=== PATIENT | male | born 1940 | race Caucasian/White ===

== ENCOUNTER 2021-09-20 09:08 | Outpatient (CLI) | payer MEDICARE, BC ==
[2021-09-20 10:06] LABS: ALBUMIN 3.8 G/DL (3.4-5.0); ANION GAP 10 (8-16); BLOOD UREA NITROGEN 54 MG/DL (7-18); CALCIUM 8.7 MG/DL (8.5-10.1); CHLORIDE 103 MMOL/L (99-107); SODIUM 138 MMOL/L (135-145); TOTAL CARBON DIOXIDE 25.1 MMOL/L (24-32); eGFR 37 ML/MIN
[2021-09-20 10:08] LABS: GLUCOSE 205 MG/DL (70-104); POTASSIUM 4.6 MMOL/L (3.5-5.1)
== END 2021-09-20 23:59 | disposition home or self-care (01) ==
LOC: RAD 09:08
PROVIDERS: ATTEND Internal Medicine Interventional Cardiology
DX: I10 Essential (primary) hypertension (principal); I48.91 Unspecified atrial fibrillation
CPT/HCPCS: 36415; 80048

== ENCOUNTER 2021-09-21 09:36 | Day surgery (SDC) | payer MEDICARE, BC ==
[~2021-09-21] VITALS: Ht 162.6 cm; Wt 72.5 kg
[2021-09-21 10:00] VITALS: BP 116/52
[2021-09-21] MEDS ORDERED: sodium bicarbonate (8.4%) inj. 150 MEQ in dextrose 5%-water 1,000 ML IV SCH (10:10)
[2021-09-21] MEDS ORDERED: iohexol 350 MG/ML 50ML vial IV ONE (12:07)
--- NOTE | 2021-09-21 15:09 | NUR ---
Patient in room . I have received report from Danyelle SHRESTHA and had the opportunity to ask questions and assume patient care.
[2021-09-21 15:13] VITALS: BP 101/58
--- NOTE | 2021-09-21 15:14 | NUR ---
Pt resting in bed, at bedside. Denies pain. VS stable as charted. Will continue to monitor.
== END 2021-09-21 16:14 | disposition home or self-care (01) ==
LOC: SSTAY O 09:36 → EDSTATUS 11:00 → SSTAY O 16:14
PROVIDERS: ATTEND Internal Medicine Interventional Cardiology
DX: I65.23 Occlusion and stenosis of bilateral carotid arteries (principal); Z79.899 Other long term (current) drug therapy
CPT/HCPCS: 70498; 82948; J3490; J7070; Q9967

== ENCOUNTER 2021-10-18 09:27 | Inpatient (IN) | payer MEDICARE, BC ==
[2021-10-18] VITALS (12 sets, daily range): BP systolic 94–168; BP diastolic 43–87
[~2021-10-18] VITALS: Ht 162.6 cm; Wt 72.4 kg
[2021-10-18] MEDS ORDERED: diphenhydrAMINE 25mg capsule PO ONE (10:00)
[2021-10-18] MEDS ORDERED: LORazepam 1 MG tablet PO ONE (10:00)
[2021-10-18] MEDS ORDERED: ALLO300T8 PO (10:38)
[2021-10-18] MEDS ORDERED: FENO160T8 PO (10:38)
[2021-10-18] MEDS ORDERED: BEMP180T (10:38)
[2021-10-18] MEDS ORDERED: HYDR12.55 PO (10:38)
[2021-10-18] MEDS ORDERED: FLO0.4C PO (10:38)
[2021-10-18] MEDS ORDERED: CLOP75TA34 (10:46)
[2021-10-18] MEDS ORDERED: EMPA10TA (10:46)
[2021-10-18] MEDS ORDERED: LANTUS SQ (10:46)
[2021-10-18] MEDS ORDERED: LISI20TA28 (10:46)
[2021-10-18] MEDS ORDERED: PRED20TA (10:46)
[2021-10-18] MEDS ORDERED: ASPI-1071 PO (10:46)
[2021-10-18] MEDS ORDERED: GLIP10TA21 PO (10:46)
[2021-10-18] MEDS ORDERED: CILO50TA2 PO (10:46)
[2021-10-18] MEDS ORDERED: DIPH25TA62 PO (10:47)
[2021-10-18] MEDS ORDERED: LORazepam 0.5 MG tablet PO ONE (12:15)
[2021-10-18] MEDS ORDERED: heparin 1,000unit/ml 10ml vial 10 ML ONE (14:29)
[2021-10-18] MEDS ORDERED: DOPamine 400mg/D5W 250ml 0 ML IV ONE (14:29)
[2021-10-18] MEDS ORDERED: phenylephrine 10mg/ml inj. ONE (14:29)
[2021-10-18] MEDS ORDERED: atropine 0.1mg/ml 10ml syringe ONE ×2 (14:29→15:20)
[2021-10-18] MEDS ORDERED: iohexol 350MG/ML 100ml bottle IV ONE (14:30)
[2021-10-18] MEDS ORDERED: LIDOcaine 1% 30ml preserv. free vial ONE (14:49)
[2021-10-18] MEDS ORDERED: hydrocortisone sod succ/PF 100mg/2ml inj. ONE (15:00)
[2021-10-18] MEDS ORDERED: clopidogrel 300mg tablet ONE (15:29)
--- NOTE | 2021-10-18 16:15 | NUR ---
Accompanied patient's to U 3023B with all of patient's belongings. Bedside report given to receiving HENRIETTA Cuellar. Patient stable at transfer from [employer] business representative.
--- NOTE | 2021-10-18 16:21 | NUR ---
patient arrived on floor at 1605. Groin cath site CDI no hematoma, no bruising. distal pulse and sensation intact. Neuro check grossly normal. All extremities warm with good pulses and sensation intact. PT and educated about need to stay flat until 8 pm both verbalized understanding
--- NOTE | 2021-10-18 16:42 | NUR ---
neuro intact - grossly normal , vitals stable , cath site no issues, pulses in all 4 extremities normal cap refill brisk
[2021-10-18] MEDS ORDERED: HYDROcodone/acetaminophen 10/325mg tab PO PRN (17:05)
[2021-10-18] MEDS ORDERED: hydrALAZINE 20mg/ml inj. IV PRN (17:05)
[2021-10-18] MEDS ORDERED: insulin Lispro (HumaLOG) vial - multi-dose SQ SCH (17:05)
[2021-10-18] MEDS ORDERED: glucagon, human recombinant 1mg kit SUBCUT PRN (17:05)
[2021-10-18] MEDS ORDERED: DOPamine 400mg/D5W 250ml 250 ML IV SCH (17:05)
[2021-10-18] MEDS ORDERED: dextrose 50%-water 50ml dispensing syringe IV PRN ×2 (17:05)
[2021-10-18] MEDS ORDERED: MESSAGE TO PHARMACY PO ONE (17:05)
[2021-10-18] MEDS ORDERED: DEXTROSE 15 GM of carb/4 tabs (each vial/BOTTLE has 4 tablets) PO PRN ×2 (17:05)
[2021-10-18] MEDS ORDERED: acetaminophen 325mg tablet PO PRN (17:05)
[2021-10-18] MEDS ORDERED: pseudoephedrine 30mg tablet PO PRN (17:05)
[2021-10-18] MEDS ORDERED: HYDROcodone/acetaminophen 5mg/325mg tablet PO PRN (17:05)
--- NOTE | 2021-10-18 17:46 | NUR ---
neuro check x2 grossly intact - no changes , cath site no changes
--- NOTE | 2021-10-18 18:32 | NUR ---
neuro check normal no changes no complications at cath site
--- NOTE | 2021-10-18 18:33 | NUR ---
Problems reprioritized. Patient report given, questions answered & plan of care reviewed with Thalia SHRESTHA. Patient resting in bed in no acute distress.
[2021-10-18] MEDS: cilostazol 50mg tablet PO SCH (19:51)
[2021-10-18] MEDS ORDERED: insulin glargine (Lantus) pen - multi-dose SQ SCH (21:00)
[2021-10-19 02:00] VITALS: BP 104/56
[2021-10-19 06:00] VITALS: BP 128/82
--- NOTE | 2021-10-19 06:35 | NUR ---
Patient in room PCU 3023. I have received report from HENRIETTA MENDEZ, and had the opportunity to ask questions and assume patient care.
[2021-10-19] MEDS: cilostazol 50mg tablet PO SCH (07:10)
[2021-10-19] MEDS ORDERED: aspirin 81mg, enteric-coated 1 TAB TABLET.DR PO SCH (08:00)
[2021-10-19] MEDS ORDERED: fenofibrate 145mg tablet PO SCH (08:00)
[2021-10-19] MEDS ORDERED: allopurinol 300 MG tablet PO SCH (08:00)
[2021-10-19] MEDS ORDERED: BEMPEDOIC ACID 180 MG PO SCH (08:00)
[2021-10-19] MEDS ORDERED: GLIPIZIDE PO SCH (08:00)
[2021-10-19] MEDS ORDERED: tamsulosin 0.4mg capsule PO SCH (08:00)
[2021-10-19] MEDS ORDERED: HYDROchlorothiazide 12.5mg capsule PO SCH (08:00)
[2021-10-19] MEDS ORDERED: EMPAGLIFLOZIN 10 MG TABLET PO SCH (08:00)
[2021-10-19] MEDS ORDERED: lisinopril 20mg tablet PO SCH (08:00)
[2021-10-19] MEDS ORDERED: clopidogrel 75mg tablet PO SCH (08:00)
--- NOTE | 2021-10-19 09:40 | NUR ---
Noted pt with T2DM, well controlled with A1c 7.5%. Written DM education with RD contact information placed in patient's chart. Will remain available. Addendum: 10/19/21 at [address] Amended: Links added.
[2021-10-19 11:00] VITALS: BP 92/45
[2021-10-19 11:07] VITALS: BP 94/41
--- NOTE | 2021-10-19 12:36 | NUR ---
PT STABLE FOR DISCHARGE PER MD. DISCHARGE AND FOLLOW UP INSTRUCTIONS REVIEWED WITH PT AND HIS . FOLLOW UP APPOINTMENT WITH DR. ALEXANDER WAS EMPHASIZED. BELONGINGS RETURNED TO PT. TELE BOX REMOVED. PIV REMOVED WITH TIP INTACT. PT DISCHARGED TO HOME. PT LEFT IN PRIVATE VEHICLE.
== END 2021-10-19 12:25 | disposition home or self-care (01) | DRG 36 ==
LOC: SSTAY O 09:27 → OBSVTOIN 15:30 → SSTAY O 15:30 → PCU 3S 15:30 → UNDOADMOB 16:50 → PCU 3S 16:50
PROVIDERS: ADMIT Student in an Organized Health Care Education/Training Program; ATTEND Internal Medicine Interventional Cardiology
PROC: B3141ZZ Fluoroscopy of Left Common Carotid Artery using Low Osmolar Contrast (ICD-10-PCS; principal; 2021-10-18)
PROC: 037L3DZ Dilation of Left Internal Carotid Artery with Intraluminal Device, Percutaneous Approach (ICD-10-PCS; 2021-10-18)
PROC: B3171ZZ Fluoroscopy of Left Internal Carotid Artery using Low Osmolar Contrast (ICD-10-PCS; 2021-10-18)
PROC: B31B1ZZ Fluoroscopy of Left External Carotid Artery using Low Osmolar Contrast (ICD-10-PCS; 2021-10-18)
PROC: B41F1ZZ Fluoroscopy of Right Lower Extremity Arteries using Low Osmolar Contrast (ICD-10-PCS; 2021-10-18)
PROC: B3101ZZ Fluoroscopy of Thoracic Aorta using Low Osmolar Contrast (ICD-10-PCS; 2021-10-18)
DX: I65.23 Occlusion and stenosis of bilateral carotid arteries (principal); I10 Essential (primary) hypertension; I25.10 Atherosclerotic heart disease of native coronary artery without angina pectoris; I48.91 Unspecified atrial fibrillation; I35.0 Nonrheumatic aortic (valve) stenosis; R00.1 Bradycardia, unspecified; E11.51 Type 2 diabetes mellitus with diabetic peripheral angiopathy without gangrene; E78.5 Hyperlipidemia, unspecified; Z79.84 Long term (current) use of oral hypoglycemic drugs; Z79.899 Other long term (current) drug therapy
CPT/HCPCS: 36223; 36415; 37215; 82948; 83036; 87081; 93005; A4620; A6258; C1725; C1760; C1769; C1876; C1884; C1887; C1894; G0378; J0461; J1265; J1644; J1720; J1815; J2370; J3490; J7030; Q0163; Q9967

== ENCOUNTER 2022-03-02 01:22 | Inpatient (IN) | payer MEDICARE, BC ==
[~2022-03-02] VITALS: Ht 162.6 cm; Wt 70.5 kg
[~2022-03-02 01:22] MED LIST: ALLO300T8 PO; ASPI-1071 PO; BEMP180T; CILO50TA2 PO; CLOP75TA34; DIPH25TA62 PO; EMPA10TA; FENO160T8 PO; FLO0.4C PO; GLIP10TA21 PO; HYDR12.55 PO; LANTUS SQ; LISI20TA28; PRED20TA
[2022-03-02 02:28] LABS: BASOPHILS # (AUTO) 0.1 X10'3 (0-0.2); BASOPHILS % (AUTO) 0.8 % (0-1); EOSINOPHILS # (AUTO) 0.4 X10'3 (0-0.9); EOSINOPHILS % (AUTO) 2.9 % (0-6); HEMATOCRIT 35.7 % (42.0-52.0); HEMOGLOBIN 12.2 g/dl (14.0-17.9); LYMPHOCYTES # (AUTO) 1.4 X10'3 (1.1-4.8); LYMPHOCYTES % (AUTO) 11.3 % (21-51); MEAN CORPUSCULAR HEMOGLOBIN 30.9 PG (27.0-31.0); MEAN CORPUSCULAR HGB CONC 34.1 g/dL (33.0-36.5); MEAN CORPUSCULAR VOLUME 90.6 FL (78-98); MEAN PLATELET VOLUME 8.3 FL (7.4-10.4); MONOCYTES % (AUTO) 8.3 % (2-12); NEUTROPHILS # (AUTO) 9.3 X10'3 (1.8-7.7); NEUTROPHILS % (AUTO) 76.7 % (42-75); PLATELET COUNT 269 X10'3 (140-440); RED BLOOD COUNT 3.94 X10'6 (4.70-6.10); RED CELL DISTRIBUTION WIDTH 14.6 % (11.5-14.5); WHITE BLOOD COUNT 12.1 X10'3 (4.5-11.0)
[2022-03-02 02:43] LABS: ALANINE AMINOTRANSFERASE 31 U/L (12-78); ALBUMIN 3.4 G/DL (3.4-5.0); ALKALINE PHOSPHATASE 78 IU/L (46-116); ANION GAP 9 (8-16); ASPARTATE AMINO TRANSFERASE 32 U/L (10-37); BILIRUBIN,TOTAL 0.5 MG/DL (0.1-1.0); BLOOD UREA NITROGEN 23 MG/DL (7-18); BUN/CREATININE RATIO 20.5 (5.4-32.0); CALCIUM 9.1 MG/DL (8.5-10.1); CHLORIDE 104 MMOL/L (99-107); CREATININE 1.12 MG/DL (0.60-1.10); GLUCOSE 198 MG/DL (70-104); MAGNESIUM 1.7 MG/DL (1.5-2.4); POTASSIUM 4.2 MMOL/L (3.5-5.1); SODIUM 137 MMOL/L (135-145); TOTAL CARBON DIOXIDE 23.9 MMOL/L (24-32); TOTAL PROTEIN 6.9 G/DL (6.4-8.2); eGFR 63 ML/MIN
[2022-03-02] MEDS ORDERED: furosemide 10 MG/1 ML 10ml inj IV ONE (02:50)
[2022-03-02] MEDS ORDERED: potassium CL 10mEq/100ml bag 100 ML IV PRN (04:40)
[2022-03-02] MEDS ORDERED: acetaminophen 325mg tablet PO PRN ×2 (04:40)
[2022-03-02] MEDS ORDERED: ondansetron/PF 4mg/2ml inj IV PRN (04:40)
[2022-03-02] MEDS ORDERED: magnesium Cl slow-release 64mg tablet PO PRN (04:40)
[2022-03-02] MEDS ORDERED: magnesium 4gm in 100ml NS 100 ML IV PRN (04:40)
[2022-03-02] MEDS ORDERED: POTASSIUM BICARB 20meq eff tab 20 MEQ TABLET.EFF PO PRN ×2 (04:40)
[2022-03-02] MEDS ORDERED: morphine 2 MG/ML inj. syringe IV PRN (04:40)
[2022-03-02] MEDS ORDERED: enoxaparin 100mg/ml syringe SUBCUT ONE (04:45)
[2022-03-02] MEDS ORDERED: insulin Lispro (HumaLOG) vial - multi-dose SQ SCH (04:50)
[2022-03-02] MEDS ORDERED: dextrose 50%-water 50ml dispensing syringe IV PRN ×2 (04:50)
[2022-03-02] MEDS ORDERED: MESSAGE TO PHARMACY PO ONE (04:50)
[2022-03-02] MEDS ORDERED: DEXTROSE 15 GM of carb/4 tabs (each vial/BOTTLE has 4 tablets) PO PRN ×2 (04:50)
[2022-03-02] MEDS ORDERED: glucagon, human recombinant 1mg kit SUBCUT PRN (04:50)
[2022-03-02 05:09] LABS: D-DIMER 0.86 MG/L FEU (0-0.50)
--- NOTE | 2022-03-02 07:04 | NUR ---
Pt moved to ER bed 14. Assumed care of patient.
[2022-03-02] MEDS: K and/or MAG REPLACEMENT MC SCH ×2 (07:20→20:00)
[2022-03-02] MEDS: tamsulosin 0.4mg capsule PO SCH (07:34)
[2022-03-02] MEDS: clopidogrel 75mg tablet PO SCH (07:34)
[2022-03-02] MEDS: aspirin 81mg, enteric-coated 1 TAB TABLET.DR PO SCH (07:34)
[2022-03-02] MEDS: furosemide 20 MG/2 ML vial IV SCH ×2 (07:34→20:00)
[2022-03-02] MEDS: CefTRIAXone 2gm/D5W 50ml BAG 50 ML IV SCH (07:34)
[2022-03-02] MEDS: carVEDilol 3.125mg tablet PO SCH ×2 (07:34→20:00)
[2022-03-02] MEDS: lisinopril 20mg tablet PO SCH (07:35)
[2022-03-02] MEDS: enoxaparin 30mg/0.3ml syringe SQ SCH ×2 (07:35→20:00)
[2022-03-02] MEDS: allopurinol 300 MG tablet PO SCH (07:35)
[2022-03-02] MEDS: BEMPEDOIC ACID 180 MG PO SCH (07:43)
[2022-03-02 07:55] LABS: POTASSIUM 4.2 MMOL/L (3.5-5.1)
[2022-03-02] MEDS: fenofibrate 145mg tablet PO SCH (08:02)
[2022-03-02] MEDS: cilostazol 50mg tablet PO SCH ×2 (08:02→20:00)
--- NOTE | 2022-03-02 12:43 | NUR ---
PT'S ac ACCUCHECK = 170, PT DID NOT EAT LUNCH DO TO TOOK PAIN AND NOT BEING ABLE TO CHEW. pc INSULIN GIVEN.
--- NOTE | 2022-03-02 12:56 | NUR ---
DR REHANA WAGNER, REQUESTED A DIET CHANGE FOR PT TO HEART HEALTHY/CARB CONTROLED/SOFT DIET DUE TO PT HAVING DENTAL ISSUES. DR KIMBALL APPROVED OF THE DIET CHANGE AND ORDER SENT TO DIETARY
[2022-03-02] MEDS: HYDROcodone/acetaminophen 5mg/325mg tablet PO PRN (13:02)
[2022-03-02] MEDS ORDERED: insulin glargine (Lantus) pen - multi-dose SQ SCH (21:00)
[2022-03-02] MEDS ORDERED: temazepam 15mg capsule PO PRN (21:00)
--- NOTE | 2022-03-03 07:05 | NUR ---
REPORT GIVEN TO HENRIETTA DUMONT, PT TO GO TO ROOM 0511E
[2022-03-03 07:45] VITALS: BP 159/78
[2022-03-03] MEDS: BEMPEDOIC ACID 180 MG PO SCH (08:00)
[2022-03-03] MEDS: K and/or MAG REPLACEMENT MC SCH (08:00)
[2022-03-03] MEDS: CefTRIAXone 2gm/D5W 50ml BAG 50 ML IV SCH (08:56)
[2022-03-03] MEDS: enoxaparin 30mg/0.3ml syringe SQ SCH (08:57)
[2022-03-03] MEDS: tamsulosin 0.4mg capsule PO SCH (08:58)
[2022-03-03] MEDS: fenofibrate 145mg tablet PO SCH (08:58)
[2022-03-03] MEDS: cilostazol 50mg tablet PO SCH (08:58)
[2022-03-03] MEDS: aspirin 81mg, enteric-coated 1 TAB TABLET.DR PO SCH (08:58)
[2022-03-03] MEDS: clopidogrel 75mg tablet PO SCH (08:58)
[2022-03-03] MEDS: lisinopril 20mg tablet PO SCH (08:58)
[2022-03-03] MEDS: furosemide 20 MG/2 ML vial IV SCH (08:58)
[2022-03-03] MEDS: allopurinol 300 MG tablet PO SCH (08:58)
[2022-03-03] MEDS: carVEDilol 3.125mg tablet PO SCH (08:58)
[2022-03-03 09:20] LABS: BASOPHILS # (AUTO) 0.1 X10'3 (0-0.2); BASOPHILS % (AUTO) 1.2 % (0-1); EOSINOPHILS # (AUTO) 0.3 X10'3 (0-0.9); EOSINOPHILS % (AUTO) 4.2 % (0-6); HEMATOCRIT 34.5 % (42.0-52.0); HEMOGLOBIN 11.7 g/dl (14.0-17.9); LYMPHOCYTES # (AUTO) 1.2 X10'3 (1.1-4.8); LYMPHOCYTES % (AUTO) 15.9 % (21-51); MEAN CORPUSCULAR HEMOGLOBIN 31.3 PG (27.0-31.0); MEAN PLATELET VOLUME 8.7 FL (7.4-10.4); MONOCYTES # (AUTO) 0.7 X10'3 (0-0.9); MONOCYTES % (AUTO) 9.4 % (2-12); NEUTROPHILS # (AUTO) 5.4 X10'3 (1.8-7.7); NEUTROPHILS % (AUTO) 69.3 % (42-75); PLATELET COUNT 261 X10'3 (140-440); RED BLOOD COUNT 3.75 X10'6 (4.70-6.10); RED CELL DISTRIBUTION WIDTH 14.6 % (11.5-14.5); WHITE BLOOD COUNT 7.8 X10'3 (4.5-11.0)
[2022-03-03 09:42] LABS: ALANINE AMINOTRANSFERASE 24 U/L (12-78); ALBUMIN 3.2 G/DL (3.4-5.0); ALKALINE PHOSPHATASE 73 IU/L (46-116); ANION GAP 8 (8-16); ASPARTATE AMINO TRANSFERASE 26 U/L (10-37); BILIRUBIN,TOTAL 0.6 MG/DL (0.1-1.0); BLOOD UREA NITROGEN 24 MG/DL (7-18); BUN/CREATININE RATIO 20.5 (5.4-32.0); CALCIUM 8.6 MG/DL (8.5-10.1); CHLORIDE 102 MMOL/L (99-107); CREATININE 1.17 MG/DL (0.60-1.10); GLUCOSE 168 MG/DL (70-104); POTASSIUM 4.1 MMOL/L (3.5-5.1); SODIUM 137 MMOL/L (135-145); TOTAL CARBON DIOXIDE 27.2 MMOL/L (24-32); TOTAL PROTEIN 6.4 G/DL (6.4-8.2); eGFR 60 ML/MIN
[2022-03-03] MEDS: HYDROcodone/acetaminophen 5mg/325mg tablet PO PRN (10:36)
[2022-03-03 11:00] VITALS: BP 156/66
[2022-03-03] MEDS ORDERED: POTA-207 PO (12:29)
[2022-03-03] MEDS ORDERED: FURO-149 PO (12:29)
[2022-03-03 14:45] VITALS: BP 142/67
--- NOTE | 2022-03-03 15:08 | NUR ---
Patient cleared for discharge. Patient aox4, vitals stable, denies pain. IV and tele discontinued. Patient gathered all belongings. Patient and verbalized understanding of discharge instructions and prescriptions.
--- NOTE | 2022-03-08 11:34 | NUR ---
Case Management DC follow up: Telephoned Patient, left VM with name, telephone number, and reason for call.
== END 2022-03-03 16:56 | disposition home or self-care (01) | DRG 280 ==
LOC: ER 01:22 → ED HOLD 04:46 → PCU 3S 03-03 07:28
PROVIDERS: ADMIT Internal Medicine; ATTEND Family Medicine
DX: I48.91 Unspecified atrial fibrillation (principal); I21.A1 Myocardial infarction type 2; I50.33 Acute on chronic diastolic (congestive) heart failure; I13.0 Hypertensive heart and chronic kidney disease with heart failure and stage 1 through stage 4 chronic kidney disease, or unspecified chronic kidney disease; I25.10 Atherosclerotic heart disease of native coronary artery without angina pectoris; E11.22 Type 2 diabetes mellitus with diabetic chronic kidney disease; E11.51 Type 2 diabetes mellitus with diabetic peripheral angiopathy without gangrene; E78.00 Pure hypercholesterolemia, unspecified; I35.0 Nonrheumatic aortic (valve) stenosis; N18.30 Chronic kidney disease, stage 3 unspecified; Z87.891 Personal history of nicotine dependence
CPT/HCPCS: 36415; 71045; 71250; 80053; 82948; 83735; 83880; 84132; 84145; 84484; 85025; 85379; 85610; 93306; 96374; 99285; G0378; J0696; J1650; J1815; J1940

== ENCOUNTER 2022-04-25 12:21 | Inpatient (IN) | payer MEDICARE, BC ==
[2022-04-25] VITALS (9 sets, daily range): BP systolic 100–134; BP diastolic 40–79
[~2022-04-25] VITALS: Ht 162.6 cm; Wt 66.8 kg
[~2022-04-25 12:21] MED LIST changes: +FURO-149 PO; -PRED20TA
--- NOTE | 2022-04-25 12:59 | NUR ---
first contact. pt ao3 speaks clearly and in complete sentences. pt denies dizziness. no visual trauma noted. resp even unlabored. skin w/d/i pink.
[2022-04-25 13:32] LABS: BASOPHILS # (AUTO) 0.1 X10'3 (0-0.2); BASOPHILS % (AUTO) 0.8 % (0-1); EOSINOPHILS # (AUTO) 0.1 X10'3 (0-0.9); EOSINOPHILS % (AUTO) 0.9 % (0-6); LYMPHOCYTES # (AUTO) 1.3 X10'3 (1.1-4.8); LYMPHOCYTES % (AUTO) 12.4 % (21-51); MEAN CORPUSCULAR HGB CONC 32.1 g/dL (33.0-36.5); MEAN CORPUSCULAR VOLUME 90.3 FL (78-98); MEAN PLATELET VOLUME 9.9 FL (7.4-10.4); MONOCYTES # (AUTO) 0.5 X10'3 (0-0.9); MONOCYTES % (AUTO) 4.9 % (2-12); NEUTROPHILS # (AUTO) 8.2 X10'3 (1.8-7.7); PLATELET COUNT 418 X10'3 (140-440); RED BLOOD COUNT 2.02 X10'6 (4.70-6.10); RED CELL DISTRIBUTION WIDTH 15.9 % (11.5-14.5); WHITE BLOOD COUNT 10.2 X10'3 (4.5-11.0)
[2022-04-25 13:34] LABS: HEMATOCRIT 18.2 % (42.0-52.0); HEMOGLOBIN 5.9 g/dl (14.0-17.9)
[2022-04-25 13:52] LABS: ALANINE AMINOTRANSFERASE 12 U/L (12-78); ALBUMIN 2.8 G/DL (3.4-5.0); ALBUMIN/GLOBULIN RATIO 0.6 (1.1-1.5); ALKALINE PHOSPHATASE 39 IU/L (46-116); ANION GAP 18 (8-16); ASPARTATE AMINO TRANSFERASE 17 U/L (10-37); BILIRUBIN,TOTAL 0.2 MG/DL (0.1-1.0); CALCIUM 9.6 MG/DL (8.5-10.1); CHLORIDE 97 MMOL/L (99-107); GLUCOSE 233 MG/DL (70-104); SODIUM 129 MMOL/L (135-145); TOTAL PROTEIN 7.3 G/DL (6.4-8.2); eGFR 13 ML/MIN
[2022-04-25 14:11] LABS: POTASSIUM 6.9 MMOL/L (3.5-5.1); TOTAL CARBON DIOXIDE 14.2 MMOL/L (24-32)
[2022-04-25 14:19] LABS: BLOOD UREA NITROGEN 22 MG/DL (7-18); BUN/CREATININE RATIO 4.9 (5.4-32.0)
[2022-04-25] MEDS ORDERED: pantoprazole 40 MG vial IV ONE (15:10)
[2022-04-25] MEDS ORDERED: normal saline 1000ML IV soln IVB ONE (15:10)
[2022-04-25] MEDS ORDERED: pantoprazole 40MG/NS 100ML BAG 100 ML IV ONE (15:15)
[2022-04-25] MEDS ORDERED: insulin regular, human U-100 3ml vial - multi-dose IV ONE (15:18)
[2022-04-25] MEDS ORDERED: dextrose 50%-water 50ml dispensing syringe IV ONE (15:18)
[2022-04-25] MEDS ORDERED: sodium polystyrene sulfonate 15gm/60ml oral suspension PO ONE (15:19)
[2022-04-25] MEDS ORDERED: sodium bicarbonate (8.4%) 1 mEq/ml syringe IV ONE (15:28)
[2022-04-25] MEDS ORDERED: CALCIUM GLUC 1gm/50ml NACL,iso 50 ML IV ONE (15:33)
[2022-04-25] MEDS ORDERED: ondansetron/PF 4mg/2ml inj IV PRN (15:40)
[2022-04-25] MEDS ORDERED: mag hydrox/Alum hydrox/simeth 30ml oral suspension PO PRN (15:40)
[2022-04-25] MEDS ORDERED: acetaminophen 325mg tablet PO PRN (15:40)
[2022-04-25] MEDS ORDERED: magnesium hydroxide 30ml (MOM) UD suspension PO PRN (15:40)
[2022-04-25] MEDS: sodium bicarbonate (8.4%) inj. 100 MEQ in dextrose 5%-water 1,000 ML IV SCH (15:53)
[2022-04-25 17:16] LABS: OCCULT BLOOD STOOL POSITIVE (Neg)
--- NOTE | 2022-04-25 17:19 | NUR ---
NO ADVERSE REACTIONS AFTER 15 MIN LISSETTE. INFUSION INCREASED TO 155 ML/HR. RESP EVEN UNLABORED. PT SLEEPING BUT AROUSABLE
--- NOTE | 2022-04-25 18:17 | NUR ---
pt able to use bedside commode without dizziness or sob. pt had black soft watery stool.
[2022-04-25] MEDS: pantoprazole 40MG/NS 100ML BAG 100 ML IV SCH ×2 (19:02→21:00)
--- NOTE | 2022-04-25 19:23 | NUR ---
attempted report, nurse to call back
--- NOTE | 2022-04-25 19:36 | NUR ---
report given to Trista SHRESTHA
[2022-04-25 19:44] LABS: HEMOGLOBIN A1C 8.9 % (4.5-6.2)
[2022-04-25] MEDS: docusate sod 100mg capsule PO SCH (20:00)
[2022-04-25 20:07] LABS: ALBUMIN 2.6 G/DL (3.4-5.0); ANION GAP 15 (8-16); CALCIUM 9.1 MG/DL (8.5-10.1); CHLORIDE 105 MMOL/L (99-107); CREATININE 3.97 MG/DL (0.60-1.10); GLUCOSE 133 MG/DL (70-104); SODIUM 136 MMOL/L (135-145); TOTAL CARBON DIOXIDE 15.6 MMOL/L (24-32); eGFR 15 ML/MIN
--- NOTE | 2022-04-25 20:07 | NUR ---
arrived from the ER on a gurney and was able to transfer to hospital bed w/o problem.
[2022-04-25 20:09] LABS: BUN/CREATININE RATIO 49.6 (5.4-32.0)
[2022-04-25 20:10] LABS: BLOOD UREA NITROGEN 197 MG/DL (7-18)
[2022-04-25 20:12] LABS: POTASSIUM 6.1 MMOL/L (3.5-5.1)
[2022-04-26] VITALS (14 sets, daily range): BP systolic 61–141; BP diastolic 36–63
[2022-04-26 00:38] LABS: HEMATOCRIT 24.9 % (42.0-52.0); HEMOGLOBIN 8.6 g/dl (14.0-17.9); MEAN CORPUSCULAR HEMOGLOBIN 30.2 PG (27.0-31.0); MEAN CORPUSCULAR HGB CONC 34.6 g/dL (33.0-36.5); MEAN CORPUSCULAR VOLUME 87.5 FL (78-98); MEAN PLATELET VOLUME 9.6 FL (7.4-10.4); PLATELET COUNT 316 X10'3 (140-440); RED BLOOD COUNT 2.85 X10'6 (4.70-6.10); RED CELL DISTRIBUTION WIDTH 15.4 % (11.5-14.5); WHITE BLOOD COUNT 7.6 X10'3 (4.5-11.0)
[2022-04-26] MEDS: pantoprazole 40MG/NS 100ML BAG 100 ML IV SCH ×5 (05:39→21:53)
[2022-04-26 06:28] LABS: BASOPHILS # (AUTO) 0.1 X10'3 (0-0.2); BASOPHILS % (AUTO) 0.7 % (0-1); EOSINOPHILS # (AUTO) 0.2 X10'3 (0-0.9); EOSINOPHILS % (AUTO) 2.4 % (0-6); HEMATOCRIT 24.4 % (42.0-52.0); HEMOGLOBIN 8.3 g/dl (14.0-17.9); LYMPHOCYTES # (AUTO) 0.7 X10'3 (1.1-4.8); LYMPHOCYTES % (AUTO) 8.2 % (21-51); MEAN CORPUSCULAR HEMOGLOBIN 29.7 PG (27.0-31.0); MEAN CORPUSCULAR HGB CONC 33.8 g/dL (33.0-36.5); MEAN CORPUSCULAR VOLUME 87.8 FL (78-98); MEAN PLATELET VOLUME 9.6 FL (7.4-10.4); MONOCYTES # (AUTO) 0.7 X10'3 (0-0.9); MONOCYTES % (AUTO) 7.5 % (2-12); NEUTROPHILS # (AUTO) 7.2 X10'3 (1.8-7.7); NEUTROPHILS % (AUTO) 81.2 % (42-75); PLATELET COUNT 329 X10'3 (140-440); RED BLOOD COUNT 2.78 X10'6 (4.70-6.10); RED CELL DISTRIBUTION WIDTH 15.7 % (11.5-14.5); WHITE BLOOD COUNT 8.8 X10'3 (4.5-11.0)
--- NOTE | 2022-04-26 06:30 | NUR ---
Patient in room PCU 3025. I have received report from Trista SHRESTHA and had the opportunity to ask questions and assume patient care.
[2022-04-26] MEDS: sodium bicarbonate (8.4%) inj. 100 MEQ in dextrose 5%-water 1,000 ML IV SCH ×3 (07:11→23:27)
[2022-04-26] MEDS: docusate sod 100mg capsule PO SCH ×2 (07:40→19:04)
--- NOTE | 2022-04-26 09:15 | NUR ---
PAGER ID: [phone] MESSAGE: [phone] [id number] says patient is in [facility] 2nd degree. Thank you Judy SHERIFF [phone]
[2022-04-26 09:36] LABS: ALBUMIN 2.6 G/DL (3.4-5.0); ANION GAP 19 (8-16); CALCIUM 9.2 MG/DL (8.5-10.1); CHLORIDE 111 MMOL/L (99-107); CREATININE 3.05 MG/DL (0.60-1.10); GLUCOSE 109 MG/DL (70-104); POTASSIUM 5.6 MMOL/L (3.5-5.1); SODIUM 142 MMOL/L (135-145); eGFR 20 ML/MIN
[2022-04-26 09:39] LABS: BLOOD UREA NITROGEN 165 MG/DL (7-18); BUN/CREATININE RATIO 54.1 (5.4-32.0)
[2022-04-26 09:43] LABS: TOTAL CARBON DIOXIDE 12.4 MMOL/L (24-32)
--- NOTE | 2022-04-26 09:47 | NUR ---
PAGER ID: [phone] MESSAGE: [id number] B Shaneka critical CO2 12.4. Thank you Judy SHERIFF [phone]
--- NOTE | 2022-04-26 11:28 | NUR ---
DM consult: Per EMR pt with T2DM, current A1c is 8.9%. Attempted visit with pt at bedside however pt sleeping. Written DM education with RD contact information placed at patient's bedside. Will remain available. Addendum: 04/26/22 at [address] Amended: Links added.
--- NOTE | 2022-04-26 12:53 | NUR ---
GI lab called to inform nursing that they will be up to get the patient in a few minutes for his scheduled EGD.
[2022-04-26] MEDS ORDERED: FENTANYL CITRATE/PF 50 MCG/1 ML VIAL ONE (12:57)
[2022-04-26] MEDS ORDERED: MIDAZolam 1 MG/ML 5ML VIAL ONE (12:58)
[2022-04-26] MEDS ORDERED: LIDOcaine Viscous 15ml cup ONE (12:58)
--- NOTE | 2022-04-26 13:09 | NUR ---
GI lab came and escorted patient down for his EGD. Patient will be off the floor
--- NOTE | 2022-04-26 14:50 | NUR ---
Patient returned from procedure. VSS. Patient is requesting food. Will shae ROMO.
--- NOTE | 2022-04-26 15:26 | NUR ---
PAGER ID: [phone] MESSAGE: [phone] Sturr Patient is done with GI study and is asking about food. Can we start him on clear liquids? Thank you Judy SHERIFF [phone].
[2022-04-26 16:27] LABS: ALBUMIN 2.5 G/DL (3.4-5.0); ANION GAP 14 (8-16); BLOOD UREA NITROGEN 147 MG/DL (7-18); BUN/CREATININE RATIO 53.5 (5.4-32.0); CALCIUM 8.8 MG/DL (8.5-10.1); CHLORIDE 113 MMOL/L (99-107); CREATININE 2.75 MG/DL (0.60-1.10); GLUCOSE 147 MG/DL (70-104); POTASSIUM 5.2 MMOL/L (3.5-5.1); SODIUM 143 MMOL/L (135-145); TOTAL CARBON DIOXIDE 16.5 MMOL/L (24-32); eGFR 22 ML/MIN
[2022-04-26] MEDS ORDERED: APIX5TAB3 PO (16:30)
[2022-04-26] MEDS ORDERED: FLO0.4C PO (16:30)
[2022-04-26] MEDS ORDERED: FLEC50TA3 PO (16:30)
[2022-04-26] MEDS ORDERED: FURO40TA4 PO (16:31)
--- NOTE | 2022-04-26 16:52 | NUR ---
called and gave order for full liquid diet and progress as tolerated.
--- NOTE | 2022-04-26 18:31 | NUR ---
Problems reprioritized. Patient report given, questions answered & plan of care reviewed with Trista SHRESTHA.
[2022-04-26] MEDS ORDERED: dextrose 50%-water 50ml dispensing syringe IV PRN ×2 (21:15)
[2022-04-26] MEDS ORDERED: DEXTROSE 15 GM of carb/4 tabs (each vial/BOTTLE has 4 tablets) PO PRN ×2 (21:15)
[2022-04-26] MEDS ORDERED: glucagon, human recombinant 1mg kit SUBCUT PRN (21:15)
[2022-04-26] MEDS: insulin Lispro (HumaLOG) vial - multi-dose SQ SCH (22:00)
[2022-04-26] MEDS: insulin glargine (Lantus) pen - multi-dose SQ SCH (22:00)
[2022-04-27] MEDS: pantoprazole 40MG/NS 100ML BAG 100 ML IV SCH ×4 (03:13→19:39)
[2022-04-27 05:59] LABS: BASOPHILS % (AUTO) 0.7 % (0-1); EOSINOPHILS # (AUTO) 0.2 X10'3 (0-0.9); EOSINOPHILS % (AUTO) 3.8 % (0-6); HEMATOCRIT 22.1 % (42.0-52.0); HEMOGLOBIN 7.6 g/dl (14.0-17.9); LYMPHOCYTES # (AUTO) 1.1 X10'3 (1.1-4.8); LYMPHOCYTES % (AUTO) 18.5 % (21-51); MEAN CORPUSCULAR HEMOGLOBIN 29.9 PG (27.0-31.0); MEAN CORPUSCULAR HGB CONC 34.3 g/dL (33.0-36.5); MEAN CORPUSCULAR VOLUME 87.1 FL (78-98); MEAN PLATELET VOLUME 9.2 FL (7.4-10.4); MONOCYTES # (AUTO) 0.5 X10'3 (0-0.9); MONOCYTES % (AUTO) 8.9 % (2-12); NEUTROPHILS # (AUTO) 4.2 X10'3 (1.8-7.7); NEUTROPHILS % (AUTO) 68.1 % (42-75); PLATELET COUNT 285 X10'3 (140-440); RED BLOOD COUNT 2.54 X10'6 (4.70-6.10); RED CELL DISTRIBUTION WIDTH 15.8 % (11.5-14.5); WHITE BLOOD COUNT 6.1 X10'3 (4.5-11.0)
[2022-04-27 06:00] VITALS: BP 120/67
[2022-04-27 06:11] LABS: ALBUMIN 2.5 G/DL (3.4-5.0); ANION GAP 11 (8-16); BLOOD UREA NITROGEN 102 MG/DL (7-18); BUN/CREATININE RATIO 48.3 (5.4-32.0); CALCIUM 8.5 MG/DL (8.5-10.1); CHLORIDE 110 MMOL/L (99-107); CREATININE 2.11 MG/DL (0.60-1.10); GLUCOSE 136 MG/DL (70-104); POTASSIUM 4.5 MMOL/L (3.5-5.1); SODIUM 142 MMOL/L (135-145); TOTAL CARBON DIOXIDE 20.8 MMOL/L (24-32); eGFR 30 ML/MIN
--- NOTE | 2022-04-27 06:46 | NUR ---
Patient in room PCU 3025. I have received report from Trista and had the opportunity to ask questions and assume patient care.
[2022-04-27] MEDS: docusate sod 100mg capsule PO SCH ×2 (08:00→19:39)
[2022-04-27] MEDS: insulin Lispro (HumaLOG) vial - multi-dose SQ SCH ×2 (08:50→19:35)
--- NOTE | 2022-04-27 10:31 | NUR ---
SHERRY Antunez regarding addressing pt's med rec. He said he would look at it.
[2022-04-27 11:01] VITALS: BP 106/80
[2022-04-27] MEDS: sodium bicarbonate (8.4%) inj. 100 MEQ in dextrose 5%-water 1,000 ML IV SCH ×2 (11:05→21:31)
[2022-04-27 16:00] VITALS: BP 122/43
--- NOTE | 2022-04-27 18:27 | NUR ---
Problems reprioritized. Patient report given, questions answered & plan of care reviewed with Haleigh.
[2022-04-27] MEDS: insulin glargine (Lantus) pen - multi-dose SQ SCH (21:26)
[2022-04-27 22:00] VITALS: BP 138/52
[2022-04-28] MEDS: pantoprazole 40MG/NS 100ML BAG 100 ML IV SCH ×2 (00:57→06:05)
[2022-04-28 02:00] VITALS: BP 150/61
--- NOTE | 2022-04-28 06:35 | NUR ---
Problems reprioritized. Patient report given, questions answered & plan of care reviewed with HENRIETTA Moses.
[2022-04-28 07:00] VITALS: BP 138/53
[2022-04-28] MEDS: docusate sod 100mg capsule PO SCH (08:00)
[2022-04-28 08:09] LABS: BASOPHILS # (AUTO) 0.1 X10'3 (0-0.2); BASOPHILS % (AUTO) 1.2 % (0-1); EOSINOPHILS # (AUTO) 0.3 X10'3 (0-0.9); EOSINOPHILS % (AUTO) 4.5 % (0-6); HEMATOCRIT 22.1 % (42.0-52.0); HEMOGLOBIN 7.7 g/dl (14.0-17.9); LYMPHOCYTES # (AUTO) 1.1 X10'3 (1.1-4.8); LYMPHOCYTES % (AUTO) 18.2 % (21-51); MEAN CORPUSCULAR HEMOGLOBIN 30.5 PG (27.0-31.0); MEAN CORPUSCULAR HGB CONC 34.8 g/dL (33.0-36.5); MEAN CORPUSCULAR VOLUME 87.6 FL (78-98); MEAN PLATELET VOLUME 9.1 FL (7.4-10.4); MONOCYTES # (AUTO) 0.5 X10'3 (0-0.9); MONOCYTES % (AUTO) 8.6 % (2-12); NEUTROPHILS # (AUTO) 4.1 X10'3 (1.8-7.7); NEUTROPHILS % (AUTO) 67.5 % (42-75); PLATELET COUNT 277 X10'3 (140-440); RED BLOOD COUNT 2.52 X10'6 (4.70-6.10); RED CELL DISTRIBUTION WIDTH 15.2 % (11.5-14.5); WHITE BLOOD COUNT 6.1 X10'3 (4.5-11.0)
[2022-04-28 08:26] LABS: ALBUMIN 2.6 G/DL (3.4-5.0); ANION GAP 10 (8-16); BLOOD UREA NITROGEN 55 MG/DL (7-18); BUN/CREATININE RATIO 31.3 (5.4-32.0); CALCIUM 8.9 MG/DL (8.5-10.1); CHLORIDE 105 MMOL/L (99-107); CREATININE 1.76 MG/DL (0.60-1.10); GLUCOSE 142 MG/DL (70-104); POTASSIUM 3.9 MMOL/L (3.5-5.1); SODIUM 140 MMOL/L (135-145); eGFR 37 ML/MIN
[2022-04-28] MEDS ORDERED: PANT-47 PO (09:43)
[2022-04-28] MEDS: insulin Lispro (HumaLOG) vial - multi-dose SQ SCH (09:46)
== END 2022-04-28 12:32 | disposition home or self-care (01) | DRG 377 ==
LOC: ER 12:21 → ED HOLD 15:44 → PCU 3S 19:50
PROVIDERS: ADMIT Family Medicine; ATTEND Family Medicine
PROC: 30233N1 Transfusion of Nonautologous Red Blood Cells into Peripheral Vein, Percutaneous Approach (ICD-10-PCS; 2022-04-25)
PROC: 0DB78ZX Excision of Stomach, Pylorus, Via Natural or Artificial Opening Endoscopic, Diagnostic (ICD-10-PCS; principal; 2022-04-26)
DX: K29.81 Duodenitis with bleeding (principal); N17.0 Acute kidney failure with tubular necrosis; D62 Acute posthemorrhagic anemia; E87.1 Hypo-osmolality and hyponatremia; D68.9 Coagulation defect, unspecified; E87.20 Acidosis, unspecified; K21.01 Gastro-esophageal reflux disease with esophagitis, with bleeding; S40.012A Contusion of left shoulder, initial encounter; E11.51 Type 2 diabetes mellitus with diabetic peripheral angiopathy without gangrene; E78.00 Pure hypercholesterolemia, unspecified; E87.5 Hyperkalemia; W18.2XXA Fall in (into) shower or empty bathtub, initial encounter; I10 Essential (primary) hypertension; I25.10 Atherosclerotic heart disease of native coronary artery without angina pectoris; I35.0 Nonrheumatic aortic (valve) stenosis; I44.0 Atrioventricular block, first degree; I48.0 Paroxysmal atrial fibrillation; K44.9 Diaphragmatic hernia without obstruction or gangrene; N40.0 Benign prostatic hyperplasia without lower urinary tract symptoms; Y93.89 Activity, other specified; Y92.89 Other specified places as the place of occurrence of the external cause; Y99.8 Other external cause status; Z79.02 Long term (current) use of antithrombotics/antiplatelets; Z79.82 Long term (current) use of aspirin; Z95.820 Peripheral vascular angioplasty status with implants and grafts; Z79.899 Other long term (current) drug therapy; Z79.4 Long term (current) use of insulin; K22.70 Barrett's esophagus without dysplasia
CPT/HCPCS: 36415; 36430; 43239; 71045; 73030; 80048; 80053; 82272; 82948; 83036; 83605; 83880; 84132; 84484; 85025; 85027; 86885; 86900; 86901; 86920; 87081; 88305; 88342; 93005; 96374; 96375; 99152; 99285; A4620; C9113; G0378; J0610; J1815; J2250; J3010; J3490; J7030; J7040; J7070; P9016

== ENCOUNTER 2022-07-04 12:06 | Day surgery (SDC) | payer MEDICARE, BC ==
[2022-07-04] VITALS (13 sets, daily range): BP systolic 97–168; BP diastolic 44–74
[~2022-07-04] VITALS: Ht 162.6 cm; Wt 68.7 kg
[~2022-07-04 12:06] MED LIST changes: -ASPI-1071 PO; -CLOP75TA34; -DIPH25TA62 PO; +FLEC50TA3 PO; -FURO-149 PO; +FURO40TA4 PO; -HYDR12.55 PO; +PANT-47 PO; +PERFLUTREN PROTEIN-A MICROSPHR (Optison) 0.22 MG/ML 3ML VIAL IV ONE
[2022-07-04] MEDS ORDERED: normal saline 1000ml 1,000 ML IV SCH (12:35)
[2022-07-04] MEDS ORDERED: MIDAZolam 1mg/ml 10ml vial IV ONE (12:35)
[2022-07-04] MEDS ORDERED: fentaNYL/PF 50MCG/1 ML 2ML syringe IV ONE (12:35)
== END 2022-07-04 15:00 | disposition home or self-care (01) ==
LOC: SSTAY O 12:06 → EDSTATUS 20:00
PROVIDERS: ATTEND Student in an Organized Health Care Education/Training Program
DX: I08.0 Rheumatic disorders of both mitral and aortic valves (principal); I10 Essential (primary) hypertension; I25.10 Atherosclerotic heart disease of native coronary artery without angina pectoris; E11.9 Type 2 diabetes mellitus without complications; I48.91 Unspecified atrial fibrillation; I73.9 Peripheral vascular disease, unspecified; Z79.84 Long term (current) use of oral hypoglycemic drugs; Z79.899 Other long term (current) drug therapy; Z88.8 Allergy status to other drugs, medicaments and biological substances
CPT/HCPCS: 82948; 93312; 93325; 94760; J2250; J3010; J7030; A4620

== ENCOUNTER 2022-08-22 09:53 | Day surgery (SDC) | payer MEDICARE, BC ==
[~2022-08-22] VITALS: Ht 162.6 cm; Wt 69.7 kg
[2022-08-22] VITALS (18 sets, daily range): BP systolic 79–179; BP diastolic 32–98
[~2022-08-22 09:53] MED LIST changes: -ALLO300T8 PO; +APIX2.5T PO; -BEMP180T; +BEMP180T PO; -EMPA10TA; +EMPA10TA PO; -LANTUS SQ; -LISI20TA28; +LISI20TA28 PO; -PANT-47 PO; -PERFLUTREN PROTEIN-A MICROSPHR (Optison) 0.22 MG/ML 3ML VIAL IV ONE
[2022-08-22] MEDS ORDERED: normal saline 1000ml 1,000 ML IV SCH (10:20)
[2022-08-22] MEDS ORDERED: fentaNYL/PF 50MCG/1 ML 2ML syringe IV ONE (10:20)
[2022-08-22] MEDS ORDERED: MIDAZolam 1mg/ml 10ml vial IV ONE (10:20)
[2022-08-22 10:43] LABS: BASOPHILS # (AUTO) 0.1 X10'3 (0-0.2); BASOPHILS % (AUTO) 1.3 % (0-1); EOSINOPHILS # (AUTO) 0.3 X10'3 (0-0.9); EOSINOPHILS % (AUTO) 4.1 % (0-6); HEMATOCRIT 35.2 % (42.0-52.0); HEMOGLOBIN 11.8 g/dl (14.0-17.9); LYMPHOCYTES # (AUTO) 1.7 X10'3 (1.1-4.8); LYMPHOCYTES % (AUTO) 20.5 % (21-51); MEAN CORPUSCULAR HEMOGLOBIN 31.3 PG (27.0-31.0); MEAN CORPUSCULAR HGB CONC 33.6 g/dL (33.0-36.5); MEAN CORPUSCULAR VOLUME 93.3 FL (78-98); MEAN PLATELET VOLUME 9.3 FL (7.4-10.4); MONOCYTES # (AUTO) 0.7 X10'3 (0-0.9); MONOCYTES % (AUTO) 8.8 % (2-12); NEUTROPHILS # (AUTO) 5.3 X10'3 (1.8-7.7); NEUTROPHILS % (AUTO) 65.3 % (42-75); PLATELET COUNT 242 X10'3 (140-440); RED BLOOD COUNT 3.77 X10'6 (4.70-6.10); RED CELL DISTRIBUTION WIDTH 14.4 % (11.5-14.5); WHITE BLOOD COUNT 8.1 X10'3 (4.5-11.0)
[2022-08-22 10:52] LABS: ALBUMIN 3.9 G/DL (3.4-5.0); ANION GAP 12 (8-16); BLOOD UREA NITROGEN 54 MG/DL (7-18); BUN/CREATININE RATIO 30.9 (10.0-20.0); CALCIUM 9.3 MG/DL (8.5-10.1); CHLORIDE 102 MMOL/L (99-107); CREATININE 1.75 MG/DL (0.60-1.10); GLUCOSE 165 MG/DL (70-104); POTASSIUM 4.7 MMOL/L (3.5-5.1); SODIUM 138 MMOL/L (135-145); TOTAL CARBON DIOXIDE 24.1 MMOL/L (24-32); eGFR 38 ML/MIN
[2022-08-22 10:55] LABS: APTT 26 SECONDS (22-32)
== END 2022-08-22 14:45 | disposition home or self-care (01) ==
LOC: SSTAY O 09:53
PROVIDERS: ATTEND Student in an Organized Health Care Education/Training Program
DX: I48.91 Unspecified atrial fibrillation (principal); Z95.818 Presence of other cardiac implants and grafts; Z79.899 Other long term (current) drug therapy
CPT/HCPCS: 36415; 80048; 82948; 85025; 85610; 85730; 93312; 93325; J2250; J3010; J7030; A4620

== ENCOUNTER 2023-03-05 07:44 | Day surgery (SDC) | payer MEDICARE, BC ==
[2023-03-05] VITALS (9 sets, daily range): BP systolic 124–147; BP diastolic 54–64; PULSE 73–88; RESP 13–18; TEMP 97.5; O2SAT 93–98
[~2023-03-05] VITALS: Ht 162.6 cm; Wt 66.2 kg
[~2023-03-05 07:44] MED LIST changes: -APIX2.5T PO; +ASPI-611 PO; -CILO50TA2 PO; +CLOP75TA34 PO; +FISH1CAP17 PO; -FURO40TA4 PO; -GLIP10TA21 PO; +PANT40TA54 PO; +[UNRECOGNIZED DRUG - OTHER] PO; +[UNRECOGNIZED DRUG - OTHER] PO; +[UNRECOGNIZED DRUG - OTHER] PO
[2023-03-05] MEDS ORDERED: normal saline 1000ml 1,000 ML IV PRN (08:20)
[2023-03-05 08:35] LABS: BASOPHILS # (AUTO) 0.1 X10'3 (0-0.2); BASOPHILS % (AUTO) 1.7 % (0-1); EOSINOPHILS # (AUTO) 0.2 X10'3 (0-0.9); EOSINOPHILS % (AUTO) 3.3 % (0-6); LYMPHOCYTES # (AUTO) 1.1 X10'3 (1.1-4.8); LYMPHOCYTES % (AUTO) 17.2 % (21-51); MEAN CORPUSCULAR HEMOGLOBIN 33.4 PG (27.0-31.0); MEAN CORPUSCULAR HGB CONC 36.9 g/dL (33.0-36.5); MEAN CORPUSCULAR VOLUME 90.6 FL (78-98); MEAN PLATELET VOLUME 9.8 FL (7.4-10.4); MONOCYTES # (AUTO) 0.5 X10'3 (0-0.9); MONOCYTES % (AUTO) 8.8 % (2-12); NEUTROPHILS # (AUTO) 4.3 X10'3 (1.8-7.7); PRE OP HEMATOCRIT 42.7 % (42.0-52.0); PRE OP HEMOGLOBIN 15.8 g/dL (14.0-17.9); PRE OP PLATELET COUNT 239 X10'3 (140-440); PRE OP WHITE BLOOD COUNT 6.2 10'3 (4.8-10.8); RED BLOOD COUNT 4.71 X10'6 (4.70-6.10); RED CELL DISTRIBUTION WIDTH 15.6 % (11.5-14.5)
[2023-03-05 08:43] LABS: CHLORIDE 94 MMOL/L (99-107); PRE OP ANION GAP 14 (8-16); PRE OP SODIUM 134 MMOL/L (135-145); TOTAL CARBON DIOXIDE 25.8 MMOL/L (24-32)
[2023-03-05 08:45] LABS: INR 1.1 INR; PROTHROMBIN TIME 11.3 SECONDS (9.0-12.0)
[2023-03-05 09:07] LABS: CALCIUM 10.1 MG/DL (8.5-10.1); eCRCL 25 ML/MIN; eGFR 33 ML/MIN
[2023-03-05 09:18] LABS: BLOOD UREA NITROGEN 37 MG/DL (7-18); BUN/CREATININE RATIO 18.9 (10.0-20.0); CREATININE 1.96 MG/DL (0.60-1.10)
[2023-03-05] MEDS ORDERED: midazolam 1 mg/ML 2ml injection ONE (09:19)
[2023-03-05] MEDS ORDERED: fentaNYL/PF 50MCG/1 ML 2ML syringe ONE ×2 (09:19→10:11)
[2023-03-05] MEDS ORDERED: heparin 1,000 UNITS/NS 500ml 500 ML ONE (09:20)
[2023-03-05] MEDS ORDERED: iohexol 300mg/ml 100ml inj. ONE (09:20)
[2023-03-05 09:27] LABS: PRE OP GLUCOSE 288 MG/DL (70-104); PRE OP POTASSIUM 3.9 MMOL/L (3.4-5.1)
[2023-03-05 10:04] LABS: PLATELET ESTIMATE NORMAL; TOTAL CELLS COUNTED 100
[2023-03-05 10:05] LABS: ROULEAUX 2+
[2023-03-05] MEDS ORDERED: diphenhydrAMINE 50 mg/ml inj ONE (10:11)
[2023-03-05] MEDS ORDERED: normal saline 1000ml 1,000 ML IV SCH (10:40)
[2023-03-07] MEDS ORDERED: FURO40TA4 PO (14:52)
[2023-03-07] MEDS ORDERED: RIVA2.5T PO (14:52)
[2023-03-07] MEDS ORDERED: CILO50TA2 PO (14:52)
== END 2023-03-05 15:20 | disposition home or self-care (01) ==
LOC: SSTAY O 07:44
PROVIDERS: ATTEND Radiology Vascular & Interventional Radiology
DX: I73.9 Peripheral vascular disease, unspecified (principal); I10 Essential (primary) hypertension; I25.10 Atherosclerotic heart disease of native coronary artery without angina pectoris; E11.9 Type 2 diabetes mellitus without complications; E78.5 Hyperlipidemia, unspecified; I48.91 Unspecified atrial fibrillation; Z79.899 Other long term (current) drug therapy; Z98.890 Other specified postprocedural states; Z91.041 Radiographic dye allergy status; Z82.5 Family history of asthma and other chronic lower respiratory diseases
CPT/HCPCS: 36245; 36415; 75630; 76937; 80048; 82948; 85025; 85610; 99152; C1769; J1200; J1644; J2250; J3010; J7030; Q9967; 75716; 85007; 99153; A4620; A6213; C1894